=== PATIENT | male | born 1990 | race Caucasian/White ===

== ENCOUNTER 2022-05-14 14:21 | Outpatient (CLI) | payer OTHER, SELFPAY ==
--- NOTE | ~2022-05-14 | MR_ITS ---
EXAMINATION: MR shoulder RT wo con DATE: 05/14/2022 14:54 INDICATION: Chronic right shoulder pain TECHNIQUE: Magnetic resonance imaging (MRI) of the right shoulder was performed without intravenous c ontrast. Sequences included axial PD-weighted FS FSE, coronal oblique PD-weighted FS FSE, coronal obl ique T2-weighted FS FSE, sagittal PD-weighted FS FSE, and sagittal T1-weighted SE. COMPARISON: 06/25/2019 FINDINGS: Coracoacromial arch: The acromion undersurface is curved in morphology (type II). Increase in size of a small anterior sub acromial spur at the acromial insertion of the normal coracoacromial ligament. Acromioclavicular join t is normal. Rotator cuff: Progression of now moderate distal supraspinatus tendinopathy and mild infraspinatus tendinopathy wit hout discrete tear. Likely suture anchor tract at the anterior aspect of the superior facet footplate of the supraspinatus tendon which is new since the prior study suggesting interval rotator cuff repa ir. Possible additional new tiny suture anchor tracks along the middle facet footplate of the infrasp inatus tendon. The teres minor and subscapularis tendons are normal. Normal rotator cuff muscle bulk and signal. Biceps tendon, glenoid labrum and glenohumeral cartilage: Long head of the biceps tendon is normal. Likely suture anchor at the 9-10:00 position of the posteri or glenoid consisting of both repair of a labral tear previous identified at the 10:00-11:00 position . . Mild partial-thickness cartilage loss with smooth chondral surface along the cephalad half of the glenoid and along the inferomedial aspect of the humeral head. Fluid: Physiologic amount of fluid in the glenohumeral joint and biceps tendon sheath. No loose osteochondr al bodies. Small amount of fluid in the subacromial/subdeltoid bursa consistent with mild bursitis. Bones: Bone alignment is normal. Small low signal intensity bone island at the glenoid. Marrow signal is oth erwise unremarkable with no fracture or pathologic marrow replacing process. IMPRESSION: 1. Interval progression of now moderate distal supraspinatus and mild infraspinatus tendinopathy with out discrete tear. Suggestion of suture anchor tracks related to prior rotator cuff repair at the sup erior and middle facet footplates of the supraspinatus and infraspinatus tendons respectively. Correl ate with surgical history. 2. New lesion at the posterior glenoid near the site of a prior posterior superior labral tear which likely represents an additional anchor tract related to interval labral repair. Would again recommend correlation with surgical history. 3. Mild subacromial/subdeltoid bursitis. 4. Mild glenohumeral osteoarthritis. Reviewed, dictated and finalized at location A. IMPRESSION: 1. Interval progression of now moderate distal supraspinatus and mild infraspin atus tendinopathy without discrete tear. Suggestion of suture anchor tracks rel ated to prior rotator cuff repair at the superior and middle facet footplates o f the supraspinatus and infraspinatus tendons respectively. Correlate with surg ical history. 2. New lesion at the posterior glenoid near the site of a prior posterior super ior labral tear which likely represents an additional anchor tract related to i nterval labral repair. Would again recommend correlation with surgical history. 3. Mild subacromial/subdeltoid bursitis. 4. Mild glenohumeral osteoarthritis.
== END 2022-05-14 14:22 ==
DX: M25.811 Other specified joint disorders, right shoulder (principal); M19.011 Primary osteoarthritis, right shoulder; M75.51 Bursitis of right shoulder
CPT/HCPCS: 73221